=== PATIENT | female | born 1975 | race Caucasian/White ===

== ENCOUNTER → 2016-07-12 | Outpatient (CLI) | payer OTHER ==
--- NOTE | 2016-07-12 11:09 | RAD ---
Pelvic ultrasound, 07/12/2016: History: Abnormal uterine bleeding Transabdominal and transvaginal scans were obtained. The uterus measures 8.3 x 4.2 x 5.3 cm. The central uterine echo complex measures 5 mm. No uterine abnormality is seen. The ovaries are of normal size. There is a smooth cyst cluster or septated cyst in the left ovary measuring 3.3 cm in greatest diameter. The adnexal regions are otherwise unremarkable. No free fluid is evident in the pelvis. IMPRESSION: 1. Small septated left ovarian cyst. 2. The pelvic ultrasound is otherwise unremarkable.
== END | disposition home or self-care (01) ==
LOC: US 09:01
PROVIDERS: ATTEND Obstetrics & Gynecology
DX: N93.9 Abnormal uterine and vaginal bleeding, unspecified (principal); N83.292 Other ovarian cyst, left side
CPT/HCPCS: 76856

== ENCOUNTER 2016-09-08 06:23 | Observation (INO) | payer BC ==
[~2016-09-08] VITALS: Ht 160 cm; Wt 73.0 kg
[2016-09-08] VITALS (8 sets, daily range): BP systolic 108–122; BP diastolic 72–80
[~2016-09-08 06:23] MED LIST: CEFAZOLIN 1GM IVPB FOR OMNI 50 ML IV PRN
[2016-09-08 06:59] LABS: NEG OBC UR NEG; POS OBC UR POS
[2016-09-08] MEDS ORDERED: PROCHLORPERAZINE 10 MG/2 ML VIAL. IV PRN ×2 (07:00→10:00)
[2016-09-08] MEDS ORDERED: HYDROMORPHONE 2 MG/ML VIAL. IV PRN (07:00)
[2016-09-08] MEDS ORDERED: MORPHINE SULFATE 2 MG/ML DISP.SYRIN. IV PRN (07:00)
[2016-09-08] MEDS ORDERED: IV RINGERS,LACTATED 1000ML 1,000 ML IV SCH (07:00)
[2016-09-08] MEDS ORDERED: ONDANSETRON PF 4 MG/2 ML VIAL. IV PRN ×2 (07:00→10:00)
[2016-09-08] MEDS ORDERED: LIDOCAINE 1% 1 ML SYRINGE. ID PRN (07:00)
[2016-09-08] MEDS ORDERED: FENTANYL PF 100 MCG/2 ML VIAL. IV PRN ×2 (07:00)
[2016-09-08 07:04] LABS: BASO # 0.1 x10^3/uL (0.0-0.2); BASO % 1 % (0-3); EOS % 2 % (0-3); HEMATOCRIT 43.2 % (36.0-47.0); HEMOGLOBIN 14.3 g/dL (12.0-15.5); LYMPH # 3.3 x10^3/uL (1.0-4.8); LYMPH % 36 % (24-48); MEAN CORPUSCULAR HEMOGLOBIN 31 pg (25-35); MEAN CORPUSCULAR HGB CONC 33 g/dL (31-37); MEAN CORPUSCULAR VOLUME 95 fL (79-100); MONO % 9 % (0-9); NEUT % 51 % (31-73); PLATELET COUNT 340 x10^3/uL (140-400); RED BLOOD COUNT 4.55 x10^6/uL (3.50-5.40); RED CELL DISTRIBUTION WIDTH 12.7 % (11.5-14.5); WHITE BLOOD COUNT 9.2 x10^3/uL (4.0-11.0)
[2016-09-08] MEDS ORDERED: DEXAMETHASONE SOD PHOS 20 MG/5 ML VIAL. ONE (07:07)
[2016-09-08] MEDS ORDERED: LIDOCAINE 2% 100 MG/5 ML DISP.SYRIN. ONE (07:07)
[2016-09-08] MEDS ORDERED: PROPOFOL 20 ML IV ONE (07:07)
[2016-09-08] MEDS ORDERED: ONDANSETRON PF 4 MG/2 ML VIAL. ONE (07:07)
[2016-09-08] MEDS ORDERED: ROCURONIUM 50 MG/5 ML VIAL. ONE ×2 (07:07→08:56)
[2016-09-08] MEDS ORDERED: MIDAZOLAM HCL 2 MG/2 ML VIAL. ONE (07:24)
[2016-09-08] MEDS ORDERED: FENTANYL PF 250 MCG/5 ML VIAL. ONE (07:25)
[2016-09-08] MEDS ORDERED: ESTROGENS, CONJ VAGINAL CREAM 30GM TUBE. ONE (07:25)
[2016-09-08] MEDS ORDERED: SURGICEL HEMOSTAT 4X8 EACH. ONE (07:25)
[2016-09-08] MEDS ORDERED: BUPIVACAINE-EPI 0.25%-1:200000 MPF 30 ML VIAL. ONE (07:25)
[2016-09-08] MEDS ORDERED: LIDOCAINE 1%/EPI 1:100,000 20 ML VIAL. ONE (07:25)
[2016-09-08] MEDS ORDERED: FAMOTIDINE 20 MG/2 ML VIAL ONE (07:27)
[2016-09-08] MEDS ORDERED: KETOROLAC 30 MG/ML SYRINGE FOR OR. INJ ONE (08:22)
[2016-09-08] MEDS ORDERED: NEOSTIGMINE METHYLSULFATE 5 MG/5 ML SYRINGE. ONE (08:22)
[2016-09-08] MEDS ORDERED: GLYCOPYRROLATE 1 MG/5 ML VIAL. ONE (08:23)
[2016-09-08] MEDS ORDERED: EPHEDRINE PF IN SALINE 50 MG/5 ML DISP.SYRIN. IV ONE (08:33)
[2016-09-08] MEDS ORDERED: DESFLURANE 61 TO 120 MINUTES IH ONE (09:18)
--- NOTE | 2016-09-08 09:53 | PDOC ---
BRIEF OPERATIVE NOTE Pre-Op Diagnosis 1. AUB 2. DIANA cyst Post-Op Diagnosis Same Procedure Performed TLH & LSO via [facility] Surgeon Dr. Bethea Anesthesia Type: General Blood Loss 25 ml Specimens Obtained uterus, cervix, Left fallopian tube and DIANA Findings enlarged uterus, DIANA complex cyst; nml Left fallopian tube, nml ROV and Right fallopian tube Complications none Additional Remarks pt. JALEESA Gallagher Jr, MD Sep 08, 2016 09:53
[2016-09-08] MEDS ORDERED: 0.9 % SODIUM CHLORIDE 10 ML DISP.SYRIN. IV PRN (10:00)
[2016-09-08] MEDS ORDERED: SIMETHICONE 80 MG TAB.CHEW PO PRN (10:00)
[2016-09-08] MEDS ORDERED: ZOLPIDEM 5 MG TABLET. PO PRN (10:00)
[2016-09-08] MEDS ORDERED: OXYCODONE/APAP 5/325 TABLET. PO PRN (10:00)
[2016-09-08] MEDS ORDERED: DIPHENHYDRAMINE HCL 25 MG CAPSULE PO PRN (10:00)
[2016-09-08] MEDS ORDERED: CALCIUM CARBONATE 500 MG TAB.CHEW PO PRN (10:00)
[2016-09-08] MEDS ORDERED: DIPHENHYDRAMINE 50 MG/ML VIAL IV PRN (10:00)
[2016-09-08] MEDS ORDERED: DEXTROSE 50% 25 GM / 50ML DISP.SYRIN. IV PRN (10:00)
--- NOTE | 2016-09-08 13:31 | OP ---
DATE OF SURGERY: PREOPERATIVE DIAGNOSES: 1. Abnormal uterine bleeding. 2. Left ovarian cyst. POSTOPERATIVE DIAGNOSES: 1. Abnormal uterine bleeding. 2. Left ovarian cyst. PROCEDURE: Total laparoscopic hysterectomy and left salpingo-oophorectomy via da G[facility]ardo robot. SURGEON: Jaleesa Bethea MD HORSE TRAINER: Akiko Rodriguez. ANESTHESIA: GETA. ESTIMATED BLOOD LOSS: 25 mL. COMPLICATIONS: None. FINDINGS: Enlarged uterus with left ovarian complex cyst, normal left fallopian tube, normal right ovary, and normal right fallopian tube. SUMMARY: A 41-year-old with abnormal uterine bleeding and left complex ovarian cysts requiring hysterectomy. She was counseled on the risks, benefits, and expectations of total laparoscopic hysterectomy and left salpingo-oophorectomy via [facility]ardo robot. She voiced a clear understanding to proceed. DESCRIPTION OF PROCEDURE: The patient was taken to surgery suite and placed in dorsal lithotomy position. She was prepped with Betadine for vaginal prep and ChloraPrep for abdominal prep. After adequate anesthesia, a weighted speculum and curved Grace were placed vaginally. The anterior lip of the cervix was grasped with a single tooth tenaculum. The WES uterine manipulator was then placed. The single tooth tenaculum and weighted speculum were removed. Attention was placed on the abdomen. Small transverse skin incision was made just below the umbilicus with scalpel. Veress needle was then placed through the infraumbilical incision site. The abdomen was allowed to insufflate up to 1-1/2 liters of CO2 gas. The Veress needle was then removed. An 8-mm trocar was placed. The camera was placed. The uterus was enlarged. There was left complex ovarian cyst. Fallopian tubes appeared normal bilaterally. The right ovary appeared normal. Incision was made in the left and right lower quadrant with a scalpel in which 8 mm trocars were placed. An accessory port was placed in the left upper quadrant, which was a 5-mm port. The robot was then docked in normal fashion. I then proceeded to the console. Utilizing the vessel sealer and fenestrated bipolar cautery, the right round ligament was coagulated and dissected. The right utero-ovarian pedicle was coagulated and dissected. The right broad ligament and right uterine artery were coagulated and dissected. The bladder flap was partially created with the vessel sealer and blunt dissection. The left round ligament was then coagulated and dissected. The left infundibulopelvic ligament was coagulated and dissected. The left broad ligament and left uterine artery were coagulated and dissected with the vessel sealer. The ureters were visualized and were functioning properly. Colpotomy was performed at the level of the vaginal ring with spatula. The cervix, uterus, left fallopian tube, and ovaries were then removed in their entirety. The vaginal cuff was reapproximated using 0 V-Loc suture in a running fashion. Suction irrigation was utilized to verify good hemostasis. A small amount of normal saline was left in posterior cul-de-sac. The trocars were then removed under direct visualization. Abdomen was allowed to deflate as much as possible along with mechanical manipulation. The skin incisions were reapproximated using 4-0 Vicryl suture in subcuticular manner. 0.25% Marcaine with epinephrine was injected at each incision site. Moist vaginal packing was then placed vaginally. The patient tolerated procedure well and was taken to recovery room in stable condition. Sponge and needle counts correct x 3. JALEESA BETHEA MD DR: GUDELIA/balbir JOB#: [id number] / [id number]
[2016-09-08] MEDS: GABAPENTIN 300 MG CAPSULE. PO SCH ×2 (14:00→22:00)
[2016-09-08] MEDS: KETOROLAC TROMETHAMINE 30 MG/ML SYRINGE. IV PRN ×2 (16:10→23:59)
[2016-09-09 00:08] VITALS: BP 113/67
[2016-09-09 04:31] LABS: BASO % 0 % (0-3); EOS % 0 % (0-3); HEMATOCRIT 37.4 % (36.0-47.0); HEMOGLOBIN 12.3 g/dL (12.0-15.5); LYMPH # 3.1 x10^3/uL (1.0-4.8); LYMPH % 23 % (24-48); MEAN CORPUSCULAR HEMOGLOBIN 31 pg (25-35); MEAN CORPUSCULAR HGB CONC 33 g/dL (31-37); MEAN CORPUSCULAR VOLUME 94 fL (79-100); MONO % 8 % (0-9); NEUT % 68 % (31-73); PLATELET COUNT 275 x10^3/uL (140-400); RED BLOOD COUNT 3.97 x10^6/uL (3.50-5.40); RED CELL DISTRIBUTION WIDTH 12.9 % (11.5-14.5); WHITE BLOOD COUNT 13.3 x10^3/uL (4.0-11.0)
[2016-09-09 04:32] VITALS: BP 123/84
[2016-09-09] MEDS: GABAPENTIN 300 MG CAPSULE. PO SCH (06:00)
[2016-09-09 10:22] VITALS: BP 111/82
--- NOTE | 2016-09-09 17:10 | PDOC ---
SURGICAL PROGRESS NOTE Subjective Pt. feeling well. She is tolerating regular diet, ambulating and voiding without difficulty. Vital Signs Vital Signs Date Time Temp Pulse Resp B/P Pulse Ox O2 Delivery O2 Flow Rate FiO2 09/09/16 10:22 98.4 88 18 111/82 97 Room Air 98.4 09/08/16 10:16 10.0 I&O Intake and Output 09/09/16 07:00 Intake Total 2060 ml Output Total 1380 ml Balance 680 ml Intake Oral 560 ml IV Total 1500 ml Output Urine Total 1355 ml Emesis 0 ml Estimated Blood Loss 25 ml # Voids 2 PATIENT HAS A BELL: No General: Alert, Oriented X3, Cooperative HEENT: Atraumatic Lungs: Clear to auscultation Heart: Regular rate Abdomen: Normal bowel sounds, Soft Extremities: No clubbing Skin: No rashes Neuro: Normal gait Psych/Mental Status: Mental status NL Labs Laboratory Tests Test 09/08/16 06:40 09/09/16 03:56 White Blood Count 9.2x10^3/uL (4.0-11.0) 13.3x10^3/uL (4.0-11.0) Red Blood Count 4.55x10^6/uL (3.50-5.40) 3.97x10^6/uL (3.50-5.40) Hemoglobin 14.3g/dL (12.0-15.5) 12.3g/dL (12.0-15.5) Hematocrit 43.2% (36.0-47.0) 37.4% (36.0-47.0) Mean Corpuscular Volume 95fL (79-100) 94fL (79-100) Mean Corpuscular Hemoglobin 31pg (25-35) 31pg (25-35) Mean Corpuscular Hemoglobin Concent 33g/dL (31-37) 33g/dL (31-37) Red Cell Distribution Width 12.7% (11.5-14.5) 12.9% (11.5-14.5) Platelet Count 340x10^3/uL (140-400) 275x10^3/uL (140-400) Neutrophils (%) (Auto) 51% (31-73) 68% (31-73) Lymphocytes (%) (Auto) 36% (24-48) 23% (24-48) Monocytes (%) (Auto) 9% (0-9) 8% (0-9) Eosinophils (%) (Auto) 2% (0-3) 0% (0-3) Basophils (%) (Auto) 1% (0-3) 0% (0-3) Neutrophils # (Auto) 4.7x10^3uL (1.8-7.7) 9.1x10^3uL (1.8-7.7) Lymphocytes # (Auto) 3.3x10^3/uL (1.0-4.8) 3.1x10^3/uL (1.0-4.8) Monocytes # (Auto) 0.9x10^3/uL (0.0-1.1) 1.1x10^3/uL (0.0-1.1) Eosinophils # (Auto) 0.2x10^3/uL (0.0-0.7) 0.1x10^3/uL (0.0-0.7) Basophils # (Auto) 0.1x10^3/uL (0.0-0.2) 0.0x10^3/uL (0.0-0.2) Urine Test Negative (NEG) Laboratory Tests Test 09/09/16 03:56 White Blood Count 13.3x10^3/uL (4.0-11.0) Red Blood Count 3.97x10^6/uL (3.50-5.40) Hemoglobin 12.3g/dL (12.0-15.5) Hematocrit 37.4% (36.0-47.0) Mean Corpuscular Volume 94fL (79-100) Mean Corpuscular Hemoglobin 31pg (25-35) Mean Corpuscular Hemoglobin Concent 33g/dL (31-37) Red Cell Distribution Width 12.9% (11.5-14.5) Platelet Count 275x10^3/uL (140-400) Neutrophils (%) (Auto) 68% (31-73) Lymphocytes (%) (Auto) 23% (24-48) Monocytes (%) (Auto) 8% (0-9) Eosinophils (%) (Auto) 0% (0-3) Basophils (%) (Auto) 0% (0-3) Neutrophils # (Auto) 9.1x10^3uL (1.8-7.7) Lymphocytes # (Auto) 3.1x10^3/uL (1.0-4.8) Monocytes # (Auto) 1.1x10^3/uL (0.0-1.1) Eosinophils # (Auto) 0.1x10^3/uL (0.0-0.7) Basophils # (Auto) 0.0x10^3/uL (0.0-0.2) Problem List Problems Medical Problems: (1) Abnormal uterine bleeding (AUB) Status: Acute (2) Ovarian cyst Status: Acute Assessment/Plan A: POD#1 s/p TLH & LSO P: D/c home. Problems: JALEESA SHETH Jr, MD Sep 09, 2016 17:10
--- NOTE | 2016-09-09 17:10 | DISCH ---
DISCHARGE INSTRUCTIONS Condition on Discharge Condition on Discharge: Stable Activity After Discharge Activity Instructions for Disc: Activity as tolerated Lifting Instructions after Dis: No heavy lifting Driving Instructions after Dis: Do not drive today Diet after Discharge Diet after Discharge: Regular Contacting the DRLaly after DC Call your doctor for: Concerns you may have Follow-Up Follow up with: Dr. Bethea in 2 weeks. JALEESA BETHEA Jr, MD Sep 09, 2016 17:10
[2016-09-09] MEDS ORDERED: OXYC-323 PO (17:11)
[2016-09-09] MEDS ORDERED: IBUP-1060 PO (17:11)
[2016-09-09] MEDS ORDERED: DOCU-27 PO (17:11)
[2016-09-09 17:48] VITALS: BP 111/75
--- NOTE | 2016-09-12 13:30 | PATHOLOGY ---
PATHOLOGY REPORT * * * * * * * * FINAL DIAGNOSIS: Uterus, left fallopian tube and ovary, robotic laparoscopic hysterectomy and left salpingo-oophorectomy: - Adenomyosis, uterine corpus, subbasal (uterine weight 92 grams). - Chronic cervicitis with focal squamous metaplasia. - Nabothian cysts, several, small. - Proliferative endometrium. - Congestion of fallopian tube. - Cystic follicle of ovary with regressive changes. COMMENT: There is no evidence of malignancy. (JPM:mgeddi; d/t: 09/12/16) REPORT ELECTRONICALLY SIGNED BY: Naveen Carey M.D. DATE/TIME: 09/12/2016 13:29 * * * * * * * * GROSS PATHOLOGY: The specimen is received in formalin labeled "Nathaly Ames, uterus with cervix and left tube and ovary". Received is a 94 g, 7.3 x 5.4 x 4.1 cm uterus with attached cervix and attached left adnexa weighing 9 g. The uterine serosa is pink-gant to pink-franco, smooth and glistening in appearance. The 1.3 cm cervical os is surrounded by pink-gant, smooth to slightly granular ectocervical mucosa. The uterus is oriented using the peritoneal reflection and the anterior paracervical margin is inked black. The uterus is opened laterally to reveal a pink-franco, corrugated endocervical canal measuring 2.4 cm in length. The endometrial cavity is triangular measuring 4.0 cm in length by 2.4 cm in width. The endometrium is pink-franco, glistening in appearance and measures 0.1 cm in thickness. Serial sectioning reveals a franco-pink, trabeculated myometrium measuring 1.7 cm in thickness with no grossly distinct nodules or lesions. The left adnexa consists of a fimbriated fallopian tube measuring 4.5 cm in length by up to 0.7 cm in diameter attached to a 2.8 x 1.8 x 1.5 cm ovary. Sectioning through the fallopian tube reveals a patent lumen and the fallopian tube appears otherwise grossly unremarkable. Sectioning through the ovary reveals a unilocular cystic structure measuring 1.4 cm filled with blood-tinged fluid, as well as corpora lutea ranging in size from 0.1 to 0.6 cm. The specimen is submitted representatively as follows: A1 12:00 cervix A2 6:00 cervix A3 anterior endomyometrium A4 posterior endomyometrium A5 eligibility services representative sections of left adnexa. (CAA; 09/09/2016) INITIAL CPT CODE(S): A; 58224 Professional services performed by [facility] at [address] [address] Technical services performed by [facility] at [address] [place] [address], [facility] [address], [place] [address]. SPECIMEN(S) RECEIVED: A.Uterus with cervix and left tube and ovary CLINICAL HISTORY: Abnormal uterine bleeding; left ovarian complex cyst PATIENT: NATHALY AMES /AGE: 1004/14/1975 (Age: 41) PATIENT #: [id number] ALT CASE #: SPECIMEN COLLECTION DATE: 09/08/2016 SPECIMEN RECEIVED DATE: 09/08/2016 [facility] - [address] [place] [address] - PHONE: [phone] * * * END OF REPORT * * *
== END 2016-09-09 18:03 | disposition home or self-care (01) ==
LOC: SURG 06:23 → 3 NORTH 09:53
PROVIDERS: ADMIT Obstetrics & Gynecology; ATTEND Obstetrics & Gynecology
DX: N93.9 Abnormal uterine and vaginal bleeding, unspecified (principal); N83.202 Unspecified ovarian cyst, left side; N85.2 Hypertrophy of uterus
CPT/HCPCS: 36415; 58570; 81025; 85027; 86850; 86900; 86901; 88307; 96374; 96375; A4215; G0378; G0379; J0690; J0780; J1100; J1885; J2250; J2405; J2704; J2710; J3010; J3490; J7030; J7120; S0028